=== PATIENT | male | born 1990 | race Caucasian/White ===

== ENCOUNTER 2016-10-22 19:45 | Emergency (ER) | payer BC ==
--- NOTE | 2016-10-22 20:19 | ER Document Report ---
ED General - General Stated Complaint: POSSIBLE OVERDOSE Mode of Arrival: Medic Information source: Patient Notes: Patient presents to the emergency department with overdose. Patient reports he snorted heroin at approximately 1900 tonight. He reports at that time he thinks he took 1 mg of Xanax. He reports in the past two days he has taken approximately 6 mg of Xanax. Patient reports he had some alcohol to drink today also, he reports half a beer. Patient reports that he is scheduled to go to rehabilitation tomorrow and this was his last buzz. He denies suicidal or homicidal ideations. According to the EMS report patient was found in a car with his foot on the brake. They had to break the window to reach the patient. At that time his respiratory rate was approximately 3 EMS also reports that his O2 sats was 50%. EMS had to give him 2 mg of Narcan to wake him up. He denies others symptoms such as fever nausea vomiting diarrhea. He denies trauma. Patient is alert and oriented at this time. - HPI Onset: Just prior to arrival Onset/Duration: Sudden Quality of pain: No pain Associated symptoms: None Exacerbated by: Denies Relieved by: Denies Similar symptoms previously: Yes Recently seen / treated by doctor: No Past Medical History - General Information source: Patient - Social History Smoking Status: Current Every Day Smoker Cigarette use (# per day): Yes Frequency of alcohol use: Social Drug Abuse: Heroin Occupation: construction Lives with: Family Family History: Reviewed & Not Pertinent Patient has suicidal ideation: No Patient has homicidal ideation: No - Medical History Medical History: Negative Surgical Hx: Negative - Immunizations Hx Diphtheria, Pertussis, Tetanus Vaccination: Yes Review of Systems - Review of Systems Notes: Review HPI for review of systems., All other systems negative Physical Exam - Vital signs Vitals: Temp Resp BP Pulse Ox 98.0 F 16 109/46 L 98 10/22/16 21:01 10/22/16 21:01 10/22/16 21:01 10/22/16 21:01 - Notes Notes: PHYSICAL EXAMINATION: GENERAL: Well-appearing and in no acute distress nontoxic looking HEAD: Atraumatic, normocephalic. EYES: Pupils equal round and reactive to light, extraocular movements intact, sclera anicteric, conjunctiva are normal. ENT: nares patent, oropharynx clear without exudates. Moist mucous membranes. NECK: Normal range of motion, supple without lymphadenopathy LUNGS: CTAB and equal. No wheezes rales or rhonchi. HEART: Regular rate and rhythm without murmurs ABDOMEN: Soft, no tenderness. No guarding, no rebound BACK: Denies pain EXTREMITIES: Normal range of motion, no pitting edema. No cyanosis. NEUROLOGICAL: Cranial nerves grossly intact. Normal sensory/motor exams. PSYCH: Normal mood, normal affect. answers all questions appropriately, calm SKIN: Warm, Dry, normal turgor, no rashes or lesions noted Course - Re-evaluation Re-evalutation: 10/22/16 21:32 Patient's and his boss are now in the room. Patient reports he only smokes heroin. He does not shoot up. His boss reports they do have help for him and will be taking him to rehab tonight if he is medically cleared. Patient 's vital signs remained stable. Urine still needs to be connected 10/22/16 22:48 Patient EtOH is 26. Urine positive for benzos and opiates. consulted dr rodriguez , he agree's patient can be discharged with family to go to rehab. Family has arranged a bed for him at the [facility]. Patient has been alert and orientated during his time here. no further Narcan. Vital signs remained stable. - Vital Signs Vital signs: Temp Pulse Resp BP Pulse Ox 98.0 F 12 115/72 97 10/22/16 21:01 10/22/16 23:02 10/22/16 23:02 10/22/16 23:02 - Laboratory Result Diagrams: 10/22/16 20:19 10/22/16 20:19 Laboratory results interpreted by me: 10/22/16 20:19 Potassium 3.3 L Glucose 155 H Discharge - Discharge Clinical Impression: Substance abuse, Heroin abuse Condition: Stable Disposition: REHAB FACILITY Instructions: Instructions for Home Care Following a Drug Overdose ([facility]) Additional Instructions: *You have been evaluated for substance abuse, heroin abuse *You have been released to follow up with a rehab facility *[facility] *Return to ED for worsening condition, changes, needs
[2016-10-22 20:43] LABS: ABSOLUTE EOSINOPHILS # (AUTO) 0.1 10^3/uL (0.0-0.6); ABSOLUTE LYMPHOCYTES (AUTO) 1.7 10^3/uL (0.5-4.7); ABSOLUTE MONOCYTES (AUTO) 0.5 10^3/uL (0.1-1.4); BASOPHILS % (AUTO) 0.2 % (0-2); EOSINOPHILS % (AUTO) 1.5 % (0-6); HEMATOCRIT 41.3 % (37.9-51.0); HEMOGLOBIN 14.1 g/dL (13.5-17.0); LYMPHOCYTES % (AUTO) 26.5 % (13-45); MEAN CORPUSCULAR HEMOGLOBIN 29.1 pg (27.0-33.4); MEAN CORPUSCULAR HGB CONC 34.1 g/dL (32.0-36.0); MEAN CORPUSCULAR VOLUME 85 fl (80-97); MONOCYTES % (AUTO) 8.7 % (3-13); RED BLOOD COUNT 4.84 10^6/uL (4.35-5.55); RED CELL DISTRIBUTION WIDTH 13.1 % (11.5-14.0); SEGMENTED NEUTROPHILS % (AUTO) 63.1 % (42-78); WHITE BLOOD COUNT 6.3 10^3/uL (4.0-10.5)
[2016-10-22 21:05] LABS: ALANINE AMINOTRANSFERASE 23 U/L (21-72); ALBUMIN 4.3 g/dL (3.5-5.0); ALCOHOL 26 mg/dL (NONE DETECTED); ALKALINE PHOSPHATASE 60 U/L (38-126); ANION GAP 17 (5-19); ASPARTATE AMINO TRANSFERASE 34 U/L (17-59); BILIRUBIN,TOTAL 0.5 mg/dL (0.2-1.3); BLOOD UREA NITROGEN 14 mg/dL (7-20); CALCIUM 9.1 mg/dL (8.4-10.2); CARBON DIOXIDE 22 mmol/L (22-30); CHLORIDE 103 mmol/L (98-107); CREATININE RESULT 0.85 mg/dL (0.52-1.25); GLUCOSE 155 mg/dL (75-110); POTASSIUM 3.3 mmol/L (3.6-5.0); SODIUM 141.5 mmol/L (137-145); TOTAL PROTEIN 6.6 g/dL (6.3-8.2)
[2016-10-22 21:59] LABS: APPEARANCE,URINE CLEAR; BILIRUBIN,URINE NEGATIVE (NEGATIVE); GLUCOSE, URINE NEGATIVE (NEGATIVE); KETONES,URINE NEGATIVE (NEGATIVE); LEUKOCYTE ESTERASE,URINE NEGATIVE (NEGATIVE); NITRITE,URINE NEGATIVE (NEGATIVE); PROTEIN,URINE NEGATIVE (NEGATIVE); UROBILINOGEN,URINE NEGATIVE mg/dL (<2.0)
[2016-10-22 22:14] LABS: URINE BARBITURATES SCREEN NEGATIVE; URINE METHADONE SCREEN NEGATIVE; URINE OPIATES LOW UNCONFIRMED POSITIVE; URINE PHENCYCLIDINE SCREEN NEGATIVE
[2016-10-22 23:20] VITALS: BP 115/72
== END 2016-10-22 23:02 ==
LOC: ER 19:45
DX: F11.10 Opioid abuse, uncomplicated (principal); F17.210 Nicotine dependence, cigarettes, uncomplicated
CPT/HCPCS: 36415; 80053; 80307; 81001; 85025; 99284